=== PATIENT | female | born 1990 | race Asian ===

== ENCOUNTER 2019-11-05 21:28 | Emergency (ER) | payer OTHER ==
[~2019-11-05] VITALS: Ht 170.2 cm; Wt 63.6 kg
[2019-11-05 22:58] LABS: BASO % 0.5 % (0.0-2.0); EOS # 0.1 (0.0-0.7); EOS % 1.3 % (0-4.0); GRAN # 5.7 (1.4-6.5); GRAN % 66.8 % (42.2-75.2); HEMATOCRIT 38.4 % (37.0-47.0); HEMOGLOBIN 13.4 g/dl (12.5-16.0); LYMPH # 2.3 (1.2-3.4); LYMPH % 26.4 % (20.0-51.0); MEAN CELL VOLUME 92 fl (80.0-100.0); MEAN CORPUSCULAR HEMOGLOBIN 32 pg (27.0-31.0); MEAN CORPUSCULAR HGB CONC 35 g/dl (33.0-37.0); MEAN PLATELET VOLUME 10.6 fl (7.4-10.4); MONO # 0.4 (0.1-0.6); MONO % 4.6 % (1.7-9.3); PLATELET COUNT 187 K/mm3 (130-400); RED BLOOD COUNT 4.18 M/mm3 (4.10-5.30); REDCELL DISTRIBUTION WIDTH-CV 12.2 % (11.5-14.5)
[2019-11-05] MEDS ORDERED: PHENERGAN 25 TA25 MG PO (23:21)
[2019-11-05 23:24] LABS: BILIRUBIN,TOTAL 0.2 mg/dL (0.0-1.0); CALCIUM 8.9 mg/dL (8.4-10.2); CREATININE, serum 0.47 (0.52-1.25); POTASSIUM 3.7 mmol/L (3.4-5.0)
[2019-11-05 23:40] LABS: COLLECTION METHOD CLEAN CATCH
[2019-11-05 23:45] LABS: MUCOUS Present /lpf; PH 6 (5-8); URINE APPEARANCE Hazy; URINE BACTERIA None Seen /hpf; URINE BILIRUBIN Negative (NEGATIVE); URINE BLOOD Negative (NEGATIVE); URINE COLOR Yellow; URINE GLUCOSE Negative (NEGATIVE); URINE KETONE Negative (NEGATIVE); URINE LEUKOCYTE ESTERASE Negative (NEGATIVE); URINE NITRATE Negative (NEGATIVE); URINE PROTEIN(semi-quant) Negative (NEGATIVE); URINE RBC 0-2 /hpf; URINE UROBILINOGEN Negative (NEGATIVE)
[2019-11-06 01:05] VITALS: BP 112/70; PULSE 62; TEMP 97.6
== END 2019-11-06 01:05 | disposition home or self-care (01) ==
LOC: COL.ER 21:28 → EDBD 21:29 → COL.ER 21:29
PROVIDERS: Emergency Medicine
DX: O21.8 Other vomiting complicating pregnancy (principal); Z3A.12 12 weeks gestation of pregnancy
CPT/HCPCS: J2405; J2550; J7030